=== PATIENT | female | born 1995 | race Caucasian/White ===

== ENCOUNTER 2019-03-13 22:57 | Emergency (ER) | payer MEDICAID ==
[~2019-03-13] VITALS: Ht 172.7 cm; Wt 58.0 kg
[2019-03-14] MEDS ORDERED: acetaminophen 325mg tablet PO ONE (00:55)
[2019-03-14 01:17] VITALS: BP 108/74
== END 2019-03-14 01:24 | disposition home or self-care (01) ==
LOC: ER 22:58
DX: H92.02 Otalgia, left ear (principal); J45.909 Unspecified asthma, uncomplicated
CPT/HCPCS: 99282

== ENCOUNTER 2020-07-04 16:29 | Emergency (ER) | payer MEDICAID ==
[~2020-07-04] VITALS: Ht 172.7 cm; Wt 54.5 kg
[2020-07-04 16:41] VITALS: BP 129/94
== END 2020-07-04 16:46 ==
LOC: ER 16:29
DX: Z04.1 Encounter for examination and observation following transport accident (principal); J45.909 Unspecified asthma, uncomplicated; V87.7XXA Person injured in collision between other specified motor vehicles (traffic), initial encounter; Y93.89 Activity, other specified; Y92.488 Other paved roadways as the place of occurrence of the external cause; Y99.8 Other external cause status
CPT/HCPCS: 99283

== ENCOUNTER 2021-12-12 10:02 | Emergency (ER) | payer MEDICAID ==
[~2021-12-12] VITALS: Ht 172.7 cm; Wt 59.1 kg
[2021-12-12 10:27] LABS: BASOPHILS % (AUTO) 0.4 % (0-1); EOSINOPHILS # (AUTO) 0.5 X10'3 (0-0.9); EOSINOPHILS % (AUTO) 5.6 % (0-6); HEMATOCRIT 37.4 % (35.0-45.0); HEMOGLOBIN 12.8 g/dl (12.0-16.0); LYMPHOCYTES # (AUTO) 1.5 X10'3 (1.1-4.8); MEAN CORPUSCULAR HEMOGLOBIN 32.4 PG (27.0-31.0); MEAN CORPUSCULAR HGB CONC 34.2 g/dL (33.0-36.5); MEAN PLATELET VOLUME 8.1 FL (7.4-10.4); MONOCYTES # (AUTO) 0.4 X10'3 (0-0.9); NEUTROPHILS # (AUTO) 6.2 X10'3 (1.8-7.7); PLATELET COUNT 236 X10'3 (140-440); RED BLOOD COUNT 3.94 X10'6 (4.20-5.60); RED CELL DISTRIBUTION WIDTH 13.4 % (11.5-14.5); WHITE BLOOD COUNT 8.6 X10'3 (4.5-11.0)
[2021-12-12 10:36] LABS: HCG SERUM QL POSITIVE
[2021-12-12 10:43] LABS: ALANINE AMINOTRANSFERASE 10 U/L (12-78); ALBUMIN 2.9 G/DL (3.4-5.0); ALBUMIN/GLOBULIN RATIO 0.8 (1.1-1.5); ALKALINE PHOSPHATASE 57 IU/L (46-116); ANION GAP 11 (8-16); ASPARTATE AMINO TRANSFERASE 53 U/L (10-37); BILIRUBIN,TOTAL 0.2 MG/DL (0.1-1.0); BLOOD UREA NITROGEN 7 MG/DL (7-18); CHLORIDE 107 MMOL/L (99-107); GLUCOSE 75 MG/DL (70-104); SODIUM 139 MMOL/L (135-145); TOTAL PROTEIN 6.6 G/DL (6.4-8.2); eGFR > 90 ML/MIN
[2021-12-12 11:09] LABS: BETA HCG,QUANTITATIVE 20413 mIU/ml
[2021-12-12 11:30] VITALS: BP 133/76
== END 2021-12-12 11:31 ==
LOC: ER 10:02
DX: Z33.1 Pregnant state, incidental (principal); J45.909 Unspecified asthma, uncomplicated
CPT/HCPCS: 36415; 80053; 84702; 84703; 85025; 99283

== ENCOUNTER 2025-03-15 11:23 | Emergency (ER) | payer MEDICAID ==
[~2025-03-15] VITALS: Ht 172.7 cm; Wt 64.7 kg
[2025-03-15 11:53] VITALS: BP 157/91; PULSE 108; O2SAT 98
--- NOTE | 2025-03-15 12:57 | RADIOLOGY REPORT ---
[facility] EXAMINATION: DI UNI RIBS WITH PA CHEST INDICATION: RIGHT CHEST COMPARISON: None TECHNIQUE: Frontal view of the chest and 2 views of the right ribs history FINDINGS: No focal consolidation, pleural effusion or significant pneumothorax. Normal cardiomediastinal silhou ette. No displaced right rib fracture. IMPRESSION: No acute cardiopulmonary disease. No displaced right rib fracture.
--- NOTE | 2025-03-15 13:01 | Physician Documentation ---
History of Present Illness ~ Chief Complaint: Chest Wall Pain Stated Complaint: FALL Time Seen by MD: 14:03 Primary Medical Doctor: Dr. Rogers [facility] This is a 29-year-old female who presents to the ED with right-sided chest wall and breast pain after jumping in a [place] yesterday, patient reports she did not strike any objects in the water including no rocks. Patient reports no loss of consciousness. Tetanus within 5 Years?: No Allergies: Coded Allergies: No Known Allergies (Unverified , 03/15/25) Active Prescriptions See Medication Reconciliation Form. Past Medical History Past Medical History: Asthma Past Surgical History: no surgical history Alcohol Use: None Drug Use: other Lives In: Home Review of Systems ROS Right chest and breast pain as stated above in the HPI, otherwise all systems are reviewed and negative. Physical Exam Vital Signs: Temperature: 98.1, Source: Temporal, Heart Rate: 108, Respiratory Rate: 18, BP: 157/91, Pulse Oximetry: 98, Weight: 64.650 Pulse Oximetry Reflects: adequate oxygenation Physical Exam General: Alert, no apparent distress. Respiratory: Lungs clear, no respiratory distress. Chest: No accessory muscle use. Tender to the right upper rib area Cardiovascular: Regular rate and rhythm, no murmurs. Gastrointestinal: Soft, nontender, nondistended. Bowels sounds present. Neurologic: Oriented x4. Psychiatric: Normal mood and affect. Skin: Normal color, warm and dry. No edema, no ecchymosis. Progress Results/Orders Results/Orders Orders - CINTIA QUIGLEY [facility] SPECIALIST Ketorolac Trometh 15mg/Ml Vial (Toradol (03/15/25 14:15) Vital Signs 03/15/25 11:53 Temp 98.1 Pulse 108 Resp 18 B/P (MAP) 157/91 Pulse Ox 98 EKG/XRAY/CT/US/VASC/MRI Chest X-Ray : Additional Comments [facility] DI UNI RIBS WITH PA CHEST INDICATION: RIGHT CHEST COMPARISON: None TECHNIQUE: Frontal view of the chest and 2 views of the right ribs history FINDINGS: No focal consolidation, pleural effusion or significant pneumothorax. Normal cardiomediastinal silhouette. No displaced right rib fracture. IMPRESSION: No acute cardiopulmonary disease. No displaced right rib fracture. Electronically Signed by:EVA MUKHERJEE MD Date & Time: 03/15/25 1254 Dictated by: EVA MUKHERJEE MD Dictation date and time: 03/15/25 1222 I have reviewed and agree with the radiology report. I have reviewed and interpreted the imaging as: no focal consolidation or evidence of pneumothorax Medical Decision Making Differential Dx:Considerations: Include: Chest wall contusion, Flail chest, Myocardial contusion, Pneumothorax, Pulmonary contusion, Rib fracture, Renal contusion, Splenic fracture, Tension pneumothorax, Other Departure Disposition: HOME / SELF CARE / HOMELESS Impression: Primary Impression: Chest wall pain Condition: Improved Discharge Instructions: Chest Wall Pain Additional Instructions: Please continue to ice the area 20 minutes at a time with a least 30 minute break between applications of ice, you may use ibuprofen and Tylenol in combination for pain as directed by [id number] packaging. You may also consider using lidocaine patches in the area according to the [id number] packaging. Please follow up with your primary care provider in the next few days. Please return to the emergency department for any new or worsening concerning symptoms including but not limited to difficulty breathing or coughing up blood. Do not take ibuprofen, naproxen, or other NSAIDs for the next 12 hours as you received a Toradol injection which replaces these medications. Referrals: NO PRIMARY CARE PROVIDER (PCP) Education Educated: Patient Educated regarding: diagnosis, treatment, prognosis, need for follow up Signature Scribe Signature: r Attestation: The note accurately reflects work and decisions made by me.Agus Solomon NP 03/15/25 13:01 AGUS CHAPMAN NP Mar 15, 2025 13:01 CINTIA QUIGLEY Mar 15, 2025 14:09
[2025-03-15 14:23] VITALS: RESP 16
[2025-03-15] MEDS: ketorolac trometh 15mg/ml vial 15 MG/ML ML IM ONE (14:23)
[2025-03-15 14:30] VITALS: TEMP 98.1
== END 2025-03-15 14:31 | disposition home or self-care (01) ==
LOC: ER 11:24
DX: R07.89 Other chest pain (principal); N64.4 Mastodynia; J45.909 Unspecified asthma, uncomplicated
CPT/HCPCS: 71101; 96372; 99283; J1885